=== PATIENT | female | born 1985 | race Caucasian/White ===

== ENCOUNTER 2017-05-10 16:49 | Emergency (ER) | payer MEDICAID, OTHER ==
--- NOTE | 2017-05-10 18:01 | ED Physician Documentation ---
PD HPI URI - Stated complaint Stated Complaint: FLU LIKE SYMTPOMS - Chief complaint Chief Complaint: Resp - History obtained from History obtained from: Patient - History of Present Illness Timing - onset: How many days ago (2) Timing duration: Days (2) Timing details: Gradual onset Pain level max: 4 Pain level now: 3 Associated symptoms: Fever (subjective), Chills, Nasal congestion, Rhinorrhea, Sore throat, Dry cough, Dyspnea. No: Ear pain, Hemoptysis, Chest pain Contributing factors: No: Travel, Immunocompromised, Unimmunized Improves by: Nothing Worsened by: Activity Recently seen: Not recently seen Review of Systems Cardiac: denies: Palpitations GI: denies: Vomiting, Diarrhea : denies: Now EGA Musculoskeletal: denies: Neck pain, Back pain Neurologic: denies: Focal weakness, Numbness, Headache PD PAST MEDICAL HISTORY - Past Medical History Past Medical History: No - Past Surgical History Past Surgical History: No - Present Medications Home Medications: Ambulatory Orders Medication Instructions Recorded Confirmed Albuterol Sulf [Ventolin Hfa 2 puffs INH Q4HR PRN #1 inhaler 05/10/17 Inhaler] Benzonatate [Tessalon Perle] 100 mg PO TID PRN #30 capsule 05/10/17 Cetirizine HCl/Pseudoephedrine 1 each PO BID PRN #30 tab.er.12h 05/10/17 [Zyrtec-D Tablet] Prednisone 40 mg PO DAILY #10 tablet 05/10/17 - Allergies Allergies/Adverse Reactions: Allergies Allergy/AdvReac Type Severity Reaction Status Date / Time No Known Drug Allergies Allergy Verified 05/10/17 16:54 - Social History Does the pt smoke?: Yes Smoking Status: Current every day smoker Does the pt drink ETOH?: Yes Does the pt have substance abuse?: No PD ED PE NORMAL - Vitals Vital signs reviewed: Yes - General General: Alert and oriented X 3, No acute distress - HEENT HEENT: Ears normal, Moist mucous membranes, Other (Moderate posterior oropharyngeal erythema without tonsillar exudates. Uvula midline. No trismus. Normal phonation) - Neck Neck: Supple, no meningeal sign, No adenopathy - Cardiac Cardiac: RRR - Respiratory Respiratory: No respiratory distress, Other (wheezing B) - Abdomen Abdomen: Soft, Non tender, Non distended - Derm Derm: Warm and dry, No rash - Neuro Neuro: Alert and oriented X 3 - Psych Psych: Normal mood, Normal affect Results - Vitals Vitals: Vital Signs - 24 hr 05/10/17 05/10/17 05/10/17 16:52 18:27 18:39 Temperature 36.8 C Heart Rate 94 80 Respiratory 18 16 16 Rate Blood Pressure 142/88 H 132/85 H O2 Saturation 98 100 Oxygen O2 Source Room air - Labs Labs: Laboratory Tests 05/10/17 18:15 Group A Strep Rapid Negative PD MEDICAL DECISION MAKING - ED course Complexity details: reviewed results, re-evaluated patient, considered differential, d/w patient, d/w family ED course: Patient is a 31-year-old female who presents with what appears to be a viral URI with wheezing. Feels better after dexamethasone and albuterol treatment here. Rapid strep negative. No evidence of pneumonia clinically. We will continue supportive care and follow-up with her doctor. Patient counseled regarding signs and symptoms for which I believe and urgent re-evaluation would be necessary. Patient with good understanding of and agreement to plan and is comfortable going home at this time This document was made in part using voice recognition software. While efforts are made to proofread this document, sound alike and grammatical errors may occur. Departure - Departure Disposition: 01 Home, Self Care Clinical Impression: Upper respiratory tract infection Qualifiers: URI type: unspecified viral URI Qualified Code(s): J06.9 - Acute upper respiratory infection, unspecified Condition: Good Instructions: ED URI Viral W Wheezing Follow-Up: [facility] [Provider Group] Prescriptions: Albuterol Sulf [Ventolin Hfa Inhaler] 2 puffs INH Q4HR PRN #1 inhaler PRN Reason: Wheezing Prednisone 40 mg PO DAILY #10 tablet Benzonatate [Tessalon Perle] 100 mg PO TID PRN #30 capsule PRN Reason: Cough Cetirizine HCl/Pseudoephedrine [Zyrtec-D Tablet] 1 each PO BID PRN #30 tab.er.12h PRN Reason: Nasal Congestion Comments: Return if you worsen. Drink plenty of fluids and rest. Forms: Activity restrictions Discharge Date/Time: 05/10/17 19:25
[2017-05-10] MEDS ORDERED: DEXAMETHASONE 10 MG/ML VIAL PO STA (18:16)
[2017-05-10] MEDS ORDERED: ALBUTEROL NEB 2.5 MG/3 ML INH STA (18:16)
[2017-05-10] MEDS ORDERED: DEXAMETHASONE 10 MG/ML VIAL ONE (18:19)
[2017-05-10] MEDS ORDERED: CHERRY SYRUP 10 ML UDC PO ONE (18:19)
[2017-05-10] MEDS ORDERED: ALBUTEROL NEB 2.5 MG/3 ML INH ONE (18:22)
[2017-05-10 18:40] VITALS: BP 132/85
[2017-05-10 19:08] LABS: RAPID STREP SCREEN REAGENT QC YELLOW (YELLOW)
== END 2017-05-10 19:25 | disposition home or self-care (01) ==
LOC: ED 16:49
DX: J06.9 Acute upper respiratory infection, unspecified (principal); F17.200 Nicotine dependence, unspecified, uncomplicated
CPT/HCPCS: 87070; 87430; 93005; 94640; 99283; A9270; J7613

== ENCOUNTER 2017-12-19 05:50 | Emergency (ER) | payer MEDICAID ==
[2017-12-19] MEDS ORDERED: SODIUM CHLORIDE 0.9% 1,000 ML IV ONE (06:17)
[2017-12-19] MEDS ORDERED: KETOROLAC 60 MG/2 ML VIAL IVP STA (06:17)
[2017-12-19] MEDS ORDERED: ONDANSETRON 4 MG/2 ML VIAL IVP STA (06:17)
[2017-12-19 06:21] LABS: BILIRUBIN,URINE NEGATIVE (NEGATIVE); GLUCOSE, URINE (UA) NEGATIVE (NEGATIVE); KETONES,URINE (UA) NEGATIVE (NEGATIVE); LEUKOCYTE ESTERASE, URINE NEGATIVE (NEGATIVE); NITRITE,URINE NEGATIVE (NEGATIVE); OCCULT BLOOD,URINE TRACE-INTA (NEGATIVE); PROTEIN,URINE NEGATIVE (NEGATIVE); UROBILINOGEN,URINE 0.2 (NORMAL) E.U./dL (NORMAL)
[2017-12-19 06:22] LABS: CLARITY,URINE CLEAR (CLEAR)
[2017-12-19 06:24] LABS: HCG UR QUAL NEGATIVE
--- NOTE | 2017-12-19 06:25 | ED Physician Documentation ---
PD HPI URI - Stated complaint Stated Complaint: FEVER,VOMITING,COUGH,BODY ACHES - Chief complaint Chief Complaint: General - History obtained from History obtained from: Patient - History of Present Illness Timing - onset: How many days ago (3) Timing details: Gradual onset, Still present Associated symptoms: Fever, Chills, Sweats, Nasal congestion, Rhinorrhea, Dry cough, NVD Contributing factors: Sick contact Similar symptoms before: No diagnosis Recently seen: Not recently seen - Additional information Additional information: Patient is a 32 year old female with no significant past medical history who is presenting to the emergency department for flu like symptoms. Patient states that it has been going on for the last four days. patient states that the body aches are starting to improve but she did have a migraine this morning. Review of Systems Constitutional: reports: Fever, Chills, Myalgias Eyes: denies: Discharge, Irritation Ears: denies: Ear pain Nose: reports: Rhinorrhea / runny nose, Congestion Throat: reports: Sore throat Respiratory: reports: Cough GI: reports: Abdominal Pain, Nausea, Vomiting. denies: Diarrhea : denies: Dysuria, Frequency Skin: denies: Rash, Lesions Musculoskeletal: reports: Neck pain, Back pain, Extremity pain Neurologic: reports: Generalized weakness, Headache. denies: Focal weakness, Numbness, Altered mental status, LOC Immunocompromised: denies: Immunocompromised PD PAST MEDICAL HISTORY - Past Surgical History Past Surgical History: No - Present Medications Home Medications: Ambulatory Orders Medication Instructions Recorded Confirmed Ondansetron Odt [Zofran] 4 mg TL Q6H PRN #20 tablet 12/19/17 - Allergies Allergies/Adverse Reactions: Allergies Allergy/AdvReac Type Severity Reaction Status Date / Time No Known Drug Allergies Allergy Verified 12/19/17 05:58 - Social History Does the pt smoke?: Yes Smoking Status: Current every day smoker Does the pt drink ETOH?: Yes Does the pt have substance abuse?: No PD ED PE NORMAL - Vitals Vital signs reviewed: Yes - General General: Alert and oriented X 3 - HEENT HEENT: Atraumatic - Neck Neck: Supple, no meningeal sign - Cardiac Cardiac: RRR, No murmur - Respiratory Respiratory: No respiratory distress - Abdomen Abdomen: Soft, Non tender, Non distended - Derm Derm: Normal color, No rash - Extremities Extremities: No deformity, Normal ROM s pain - Neuro Neuro: Alert and oriented X 3, No motor deficit, Normal speech - Psych Psych: Normal mood PD ED PE EXPANDED - General General: Alert - HEENT HEENT: Nasal congestion, Rhinorrhea, Moist mucous membranes Results - Vitals Vitals: Vital Signs - 24 hr 12/19/17 05:55 Temperature 37.9 C H Heart Rate 95 Respiratory 20 Rate Blood Pressure 117/90 H O2 Saturation 99 Oxygen O2 Source Room air - Labs Labs: Laboratory Tests 12/19/17 12/19/17 06:02 06:07 Urine Color YELLOW Urine Clarity CLEAR Urine pH 6.0 Ur Specific Bricelyn >=1.030 H Urine Protein NEGATIVE Urine Glucose (UA) NEGATIVE Urine Ketones NEGATIVE Urine Occult Blood TRACE-INTA Urine Nitrite NEGATIVE Urine Bilirubin NEGATIVE Urine Urobilinogen 0.2 (NORMAL) Ur Leukocyte Esterase NEGATIVE Ur Microscopic Review NOT INDICATED Urine Culture Comments NOT INDICATED Urine HCG, Qual NEGATIVE Influenza A (Rapid) Negative Influenza B (Rapid) POSITIVE H Influenza Types A,B Ag + H PD MEDICAL DECISION MAKING - ED course Complexity details: reviewed old records, reviewed results, re-evaluated patient , considered differential, d/w patient, d/w family ED course: Patient was seen and examined at bedside. Urine was collected and flu swab was performed. patient was treated with a fluid bolus, toradol zofran. patient responded well to the therapy. Patient required no further inpatient work up and was stable for discharge with outpatient follow up. Departure - Departure Disposition: 01 Home, Self Care Clinical Impression: Influenza B Condition: Stable Instructions: ED Flu Follow-Up: primary,care provider [Other] - As Needed Prescriptions: Ondansetron Odt [Zofran] 4 mg TL Q6H PRN #20 tablet PRN Reason: Nausea / Vomiting Comments: Your symptoms today are being caused by the influenza virus. There is no cure so treatment is based upon treating the symptoms. You can take zofran as needed for nausea and vomiting. You should stay well hydrated with at least 100 oz of fluids a day. You should alternate between motrin and tylenol for fever reduction and body aches. You can take over the counter cold and flu medications for the other symptoms. Forms: Activity restrictions
[2017-12-19 07:40] VITALS: BP 129/84
== END 2017-12-19 07:41 | disposition home or self-care (01) ==
LOC: ED 05:50
DX: J10.1 Influenza due to other identified influenza virus with other respiratory manifestations (principal); F17.200 Nicotine dependence, unspecified, uncomplicated
CPT/HCPCS: 36415; 81001; 81003; 81025; 87086; 87275; 87276; 96374; 99283

== ENCOUNTER 2020-01-05 10:49 | Outpatient (CLI) | payer MEDICAID ==
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
== END 2020-01-05 10:50 | disposition home or self-care (01) ==
LOC: DI 10:49
PROVIDERS: ATTEND Family Medicine
DX: S02.81XD Fracture of other specified skull and facial bones, right side, subsequent encounter for fracture with routine healing (principal)
CPT/HCPCS: 70140

== ENCOUNTER 2020-01-22 13:18 | Outpatient (CLI) | payer MEDICAID ==
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
== END 2020-01-22 13:19 | disposition home or self-care (01) ==
LOC: DI 13:18
PROVIDERS: ATTEND Family Medicine
DX: S02.31XA Fracture of orbital floor, right side, initial encounter for closed fracture (principal); S02.841A Fracture of lateral orbital wall, right side, initial encounter for closed fracture; S02.40CA Maxillary fracture, right side, initial encounter for closed fracture; S02.40EA Zygomatic fracture, right side, initial encounter for closed fracture; J01.40 Acute pansinusitis, unspecified; J32.4 Chronic pansinusitis
CPT/HCPCS: 70486

== ENCOUNTER 2021-11-16 08:42 | Emergency (ER) | payer MEDICAID ==
[2021-11-16 08:59] VITALS: BP 133/80
--- NOTE | 2021-11-16 09:21 | ED Physician Documentation ---
History of Present Illness - Stated complaint Stated Complaint: CONGESTION - Chief complaint Chief Complaint: General - History obtained from History obtained from: Patient - History of Present Illness Timing: Last night Pain level max: 6 Pain level now: 4 - Additonal information Additional information: Patient is a 36-year-old female who presents to the emergency department with nasal congestion, Sinus pressure, right ear pain. She is Covid vaccinated. Her stepson recently tested positive for Covid. She states that she has a history of sinus issues and has had problems with sinus infections in the past. Patient states that this feels similar. 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 HEENT: Chronic sinusitis Psych: None Musculoskeletal: None Derm: None - Past Surgical History Past Surgical History: No - Present Medications Home Medications: Ambulatory Orders Medication Instructions Recorded Confirmed Amox/Clav 875/125 [Augmentin] 1 tab PO Q12H #20 tablet 11/16/21 Cetirizine HCl/Pseudoephedrine 1 each PO BID PRN #30 ea 11/16/21 [Zyrtec-D Tablet] Fexofenadine HCl 180 mg PO DAILY 11/16/21 11/16/21 - Allergies Allergies/Adverse Reactions: Allergies Allergy/AdvReac Type Severity Reaction Status Date / Time No Known Drug Allergies Allergy Verified 11/16/21 08:54 - Social History Does the pt smoke?: Yes Smoking Status: Current every day smoker Does the pt drink ETOH?: No Does the pt have substance abuse?: No PD ED PE NORMAL - Vitals Vital signs reviewed: Yes - General General: Alert and oriented X 3, No acute distress - HEENT HEENT: Moist mucous membranes, Pharynx benign (Tender to palpation over the frontal sinuses. Reproduces her symptoms), Other (Right TM is erythematous, dull, bulging with loss of landmarks. Purulent fluid present.. Left TM is normal) - Neck Neck: Supple, no meningeal sign, No adenopathy - Cardiac Cardiac: RRR, Strong equal pulses - Respiratory Respiratory: No respiratory distress, Clear bilaterally - Abdomen Abdomen: Soft, Non tender, Non distended - Derm Derm: Warm and dry - Neuro Neuro: Alert and oriented X 3 - Psych Psych: Normal mood, Normal affect Results - Vitals Vitals: Vital Signs - 24 hr 11/16/21 08:56 Temperature 36.5 C Heart Rate 73 Respiratory 18 Rate Blood Pressure 133/80 H O2 Saturation 97 Oxygen O2 Source Room air PD MEDICAL DECISION MAKING - ED course Complexity details: considered differential, d/w patient ED course: 36-year-old female with what appears to be a viral upper respiratory infection. We we will place her on decongestants for home. Patient also appears to have a secondary right acute otitis media with purulence. We will place on antibiotics for this. We will have her follow-up with her doctor for further care. Patient counseled regarding signs and symptoms for which I believe and urgent re- evaluation would be necessary. Patient with good understanding of and agreement to plan and is comfortable going home at this time This document was made in part using voice recognition software. While efforts are made to proofread this document, sound alike and grammatical errors may occur. Departure - Departure Disposition: 01 Home, Self Care Clinical Impression: Viral URI Otitis media Qualifiers: Otitis media type: suppurative Chronicity: acute Laterality: right Recurrence: non-recurrent Spontaneous tympanic membrane rupture: without spontaneous rupture Qualified Code(s): H66.001 - Acute suppurative otitis media without spontaneous rupture of ear drum, right ear Condition: Good Instructions: ED Otitis Media Acute Adult, ED Viral Syndrome Follow-Up: RADHA WRIGHT MD [Primary Care Provider] - Within 1 week Prescriptions: Amox/Clav 875/125 [Augmentin] 1 tab PO Q12H #20 tablet Cetirizine HCl/Pseudoephedrine [Zyrtec-D Tablet] 1 each PO BID PRN #30 ea PRN Reason: nasal congestion Comments: Your prescriptions were sent to [facility] in [place]. Please follow-up with your doctor as needed for further care. Return if you worsen.
== END 2021-11-16 10:05 | disposition home or self-care (01) ==
LOC: ED 08:42
DX: U07.1 COVID-19 (principal); H66.001 Acute suppurative otitis media without spontaneous rupture of ear drum, right ear; F17.200 Nicotine dependence, unspecified, uncomplicated
CPT/HCPCS: 99283

== ENCOUNTER 2022-04-12 23:32 | Emergency (ER) | payer MEDICAID ==
[2022-04-13] MEDS ORDERED: oxyCODONE/ACET 5/325 Prepack 4 PO STA (02:00)
--- NOTE | 2022-04-13 02:00 | XRAY Report ---
PROCEDURE: Toe(s) RT INDICATIONS: pain/trauma TECHNIQUE: 3 views of the right fifth toe acquired. COMPARISON: None. FINDINGS: Bones: There is a fracture in the midshaft of the fifth proximal phalanx with associated mild lateral displacement and angulation. No dislocation. No suspicious bony lesions. Soft tissues: No suspicious soft tissue densities. IMPRESSION: 1. Mildly displaced and angulated fracture of the fifth proximal phalanx. Reviewed by: Buddy Moreira MD on 04/13/2022 1:58 AM PDT Approved by: Buddy Moreira MD on 04/13/2022 1:58 AM PDT Station ID: [id number]
[2022-04-13 02:12] VITALS: BP 135/84
--- NOTE | 2022-04-13 02:16 | ED Physician Documentation ---
PD HPI LOWER EXT INJURY - Stated complaint Stated Complaint: RT TOE INJ - Chief complaint Chief Complaint: Trauma Ext - History obtained from History obtained from: Patient - Additional information Additional information: Patient is a 36-year-old female with no significant past medical history presenting for evaluation of right fifth toe pain after hitting it against a couch this evening. The pain is sharp and worse with ambulating. She has not taken anything for the pain. It does not radiate elsewhere.Patient denies blood thinner use. She denies injuries elsewhere. 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 HEENT: Chronic sinusitis Psych: None Musculoskeletal: None Derm: None - Past Surgical History Past Surgical History: No - Present Medications Home Medications: Ambulatory Orders Medication Instructions Recorded Confirmed Amox/Clav 875/125 [Augmentin] 1 tab PO Q12H #20 tablet 11/16/21 Cetirizine HCl/Pseudoephedrine 1 each PO BID PRN #30 ea 11/16/21 [Zyrtec-D Tablet] Fexofenadine HCl 180 mg PO DAILY 11/16/21 11/16/21 Oxycodone HCl/Acetaminophen 1 each PO Q6H PRN #10 tablet 04/13/22 [Percocet 5-325 mg Tablet] - Allergies Allergies/Adverse Reactions: Allergies Allergy/AdvReac Type Severity Reaction Status Date / Time No Known Drug Allergies Allergy Verified 04/12/22 23:35 - Social History Does the pt smoke?: Yes Smoking Status: Current every day smoker Does the pt drink ETOH?: No Does the pt have substance abuse?: No PD ED PE NORMAL - General General: Alert and oriented X 3, No acute distress, Well developed/nourished - HEENT HEENT: Atraumatic - Respiratory Respiratory: No respiratory distress - Derm Derm: Warm and dry - Extremities Extremities: Other (Deformity to right fifth toe, tissue is well perfused, able to wiggle All toes and sensation is intact, No open wounds). No: No deformity - Neuro Neuro: No motor deficit, No sensory deficit PD ED PE EXPANDED - Extremities Feet visual: 1 - deformity, tenderness Results - Vitals Vitals: Vital Signs - 24 hr 04/12/22 04/13/22 04/13/22 23:35 01:28 02:11 Temperature 36.5 C Heart Rate 100 88 Respiratory 16 16 16 Rate Blood Pressure 146/90 H 135/84 H O2 Saturation 98 98 04/13/22 02:12 Temperature 37.4 C Heart Rate Respiratory Rate Blood Pressure O2 Saturation Oxygen O2 Source Room air Procedures - Reduction Body part reduced: Toe Fracture or dislocation: Fracture dislocation Anesthesia: Digital block Shoulder reduction technique: Traction - counter tract Reduction aftercare: NV intact, Alignment improved, Patient tolerated well PD MEDICAL DECISION MAKING - ED course Complexity details: reviewed results, re-evaluated patient, d/w patient ED course: Patient with injury to right fifth toe. Fracture seen on x-ray. It is angulated. There are some improvement with alignment on reduction.However, patient is aware she needs to follow-up with orthopedic surgeon given the angul ation.Fracture was ariadna taped. Patient declined crutches and was able to ambulate. She is aware of return precautions. No injuries noted elsewhere. Departure - Departure Disposition: 01 Home, Self Care Clinical Impression: Toe fracture, right Qualifiers: Encounter type: initial encounter Toe: lesser toe Fracture type: closed Phalanx: middle Fracture alignment: displaced Qualified Code(s): S92.521A - Displaced fracture of middle phalanx of right lesser toe(s), initial encounter for closed fracture Condition: Stable Instructions: ED Fx Toe Closed Follow-Up: Robles Stanton MD [Provider Admit Priv/Credential] - Prescriptions: Oxycodone HCl/Acetaminophen [Percocet 5-325 mg Tablet] 1 each PO Q6H PRN #10 tablet PRN Reason: pain Comments: Kaley - You have a fracture of your right little toe. We have applied a ariadna tape to help stabilize the fracture. However the fracture was displaced and I do recommend having follow-up with an orthopedic surgeon As you may need an additional procedure to help the bone heal.I have included the name of a local orthopedic surgeon who I would recommend you call in the morning to Make an appointment. I have also prescribed pain medication to help With any discomfort. You can also use ice and elevate the foot as this may help with the pain. I have sent your prescription to the [facility] in [place]. I am prescribing a short course of narcotic pain medication for you. These are potentially dangerous and addictive medications that should be used carefully. These medications may constipate you. Take an aeak-wpr-sqowmlc stool softener (docusate) twice daily with plenty of water while taking these medications. If you go 24 hours without a bowel movement, take [id number] miralax, per package instructions. Do not drink or drive while taking these medications. If you received narcotic or sedating medications while in the emergency department, do not drive for 24 hours. Store this medication in a safe, secure place and out of reach of children. It is a violation of federal law to give or sell this medication to another person or to use in a manner other than prescribed. The ED will not refill narcotic prescriptions, including prescriptions lost or stolen. To dispose of unwanted medications: 1. [facility] at [address] in [place] has a medication drop box. They accept prescription medications (in pill form) Monday through Monday 9:00 a.m. to 5:00 p.m. 2. [facility] accepts prescription medications (in pill form only) for disposal year round. Call for more i nformation. 3. Contact the [facility] for the next [facility] sponsored prescription drug collection event. , [phone], or [phone]; Note that many narcotic pain relievers also contain Tylenol/acetaminophen. Please ensure that your total dose of acetaminophen from all sources does not exceed 3 g (3000 mg) per day. Discharge Date/Time: 04/13/22 02:39
--- NOTE | 2022-04-13 08:07 | XRAY Report ---
PROCEDURE: Toe(s) RT INDICATIONS: post splint TECHNIQUE: 3 views of the right fifth toe(s) acquired. COMPARISON: 04/12/2022 FINDINGS: Bones: Mildly displaced and angulated right fifth proximal phalange fracture. Soft tissues: No suspicious soft tissue densities. IMPRESSION: Mildly displaced right fifth proximal phalange fracture stable compared to the prior exam. Reviewed by: Dulce Maria Meyers MD, PhD on 04/13/2022 8:06 AM PDT Approved by: Dulce Maria Meyers MD, PhD on 04/13/2022 8:06 AM PDT Station ID: [id number]
== END 2022-04-13 02:39 | disposition home or self-care (01) ==
LOC: ED 23:32
DX: S92.511A Displaced fracture of proximal phalanx of right lesser toe(s), initial encounter for closed fracture (principal); W22.03XA Walked into furniture, initial encounter; F17.200 Nicotine dependence, unspecified, uncomplicated
CPT/HCPCS: 99283

== ENCOUNTER 2022-04-21 08:00 | Outpatient (CLI) | payer MEDICAID ==
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
== END 2022-04-21 23:59 | disposition home or self-care (01) ==
LOC: DI.WOS 08:00
PROVIDERS: ATTEND Physician Assistant Surgical
DX: S92.511D Displaced fracture of proximal phalanx of right lesser toe(s), subsequent encounter for fracture with routine healing (principal)

== ENCOUNTER 2022-05-10 08:00 | Outpatient (CLI) | payer MEDICAID | END 2022-05-10 23:59 | disposition home or self-care (01) | LOC: LAB.N 08:00 | PROVIDERS: ATTEND Physician Assistant Medical | DX: N30.00 Acute cystitis without hematuria (principal) | CPT/HCPCS: 87077; 87086 ==

== ENCOUNTER 2022-05-19 08:00 | Outpatient (CLI) | payer MEDICAID ==
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
== END 2022-05-19 23:59 | disposition home or self-care (01) ==
LOC: DI.WOS 08:00
PROVIDERS: ATTEND Physician Assistant Surgical
DX: S92.511D Displaced fracture of proximal phalanx of right lesser toe(s), subsequent encounter for fracture with routine healing (principal)

== ENCOUNTER 2024-02-02 01:59 | Emergency (ER) | payer OTHER, MEDICAID ==
[2024-02-02 02:24] VITALS: BP 136/90; O2SAT 100
[2024-02-02] MEDS: TETANUS/DIPHTHERIA/PERTUSSIS 0.5 ML SYRINGE IM ONE (02:27)
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
[2024-02-02] MEDS: AMOX/CLAV 875 MG/125 MG TABLET PO STA (04:25)
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
== END 2024-02-02 04:43 | disposition home or self-care (01) ==
LOC: ED 01:59
DX: S09.90XA Unspecified injury of head, initial encounter (principal); S02.2XXA Fracture of nasal bones, initial encounter for closed fracture; S61.411A Laceration without foreign body of right hand, initial encounter; W19.XXXA Unspecified fall, initial encounter; Y33.XXXA Other specified events, undetermined intent, initial encounter; R45.1 Restlessness and agitation; R04.0 Epistaxis; F17.200 Nicotine dependence, unspecified, uncomplicated; Z23 Encounter for immunization
CPT/HCPCS: 70450; 70486; 73030; 73060; 73120; 90471; 90715; 99284; A9270

== ENCOUNTER 2024-02-02 12:47 | Emergency (ER) | payer MEDICAID ==
[2024-02-02 13:03] VITALS: BP 133/81; O2SAT 98
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
== END 2024-02-02 13:34 | disposition home or self-care (01) ==
LOC: ED 12:47
DX: S02.2XXA Fracture of nasal bones, initial encounter for closed fracture (principal); X58.XXXA Exposure to other specified factors, initial encounter
CPT/HCPCS: 99282; 99283

== ENCOUNTER 2024-07-13 08:00 | Outpatient (CLI) | payer BC, MEDICAID | END 2024-07-13 23:59 | disposition home or self-care (01) | LOC: LAB.N 08:00 | PROVIDERS: ATTEND Nurse Practitioner | DX: R30.0 Dysuria (principal) | CPT/HCPCS: 87077; 87086; 87181 ==

== ENCOUNTER 2024-07-26 08:00 | Outpatient (CLI) | payer BC | END 2024-07-26 23:59 | disposition home or self-care (01) | LOC: LAB.N 08:00 | PROVIDERS: ATTEND Nurse Practitioner | DX: R30.0 Dysuria (principal) | CPT/HCPCS: 87086 ==

== ENCOUNTER 2024-08-02 11:20 | Outpatient (CLI) | payer BC ==
[2024-08-02 17:57] LABS: BASOPHILS # (AUTO) 0.1 10^3/uL (0.0-0.1); BASOPHILS % (AUTO) 0.9 %; EOSINOPHILS # (AUTO) 0.3 10^3/uL (0.0-0.7); EOSINOPHILS % (AUTO) 5.2 %; HCT - HEMATOCRIT 39.9 % (37.0-47.0); HGB - HEMOGLOBIN 12.8 g/dL (12.0-16.0); LYMPHOCYTES # (AUTO) 2.2 10^3/uL (1.5-3.5); LYMPHOCYTES % (AUTO) 34.7 %; MEAN CORPUSCULAR HEMOGLOBIN 29.6 pg (27.0-31.0); MEAN CORPUSCULAR HGB CONC 32.1 g/dL (32.0-36.0); MEAN CORPUSCULAR VOLUME 92.4 fL (81.0-99.0); MEAN PLATELET VOLUME 10.2 fL (7.9-10.8); MONOCYTES # (AUTO) 0.6 10^3/uL (0.0-1.0); MONOCYTES % (AUTO) 8.9 %; NEUTROPHILS # (AUTO) 3.2 10^3/uL (1.5-6.6); PLT - PLATELET COUNT 342 10^3/uL (130-450); RED BLOOD COUNT 4.32 10^6/uL (4.20-5.40); RED CELL DISTRIBUTION WIDTH 13.3 % (12.0-15.0); WHITE BLOOD COUNT 6.4 x10^3/uL (4.8-10.8)
[2024-08-02 18:28] LABS: ALBUMIN 4.2 g/dL (3.2-5.5); ALBUMIN/GLOBULIN RATIO 1.2 (1.0-2.2); ALKALINE PHOSPHATASE 49 IU/L (42-121); ALT ALANINE AMINOTRANSFERASE 17 IU/L (10-60); AST ASPARTATE AMINOTRANSFERASE 17 IU/L (10-42); BILIRUBIN,TOTAL 0.4 mg/dL (0.2-1.0); BUN - BLOOD UREA NITROGEN 14 mg/dL (6-20); CALCIUM 9.7 mg/dL (8.5-10.3); CARBON DIOXIDE - CO2 28 mmol/L (21-32); CHLORIDE 104 mmol/L (101-111); CHOL/HDL RATIO 2.9 (<4.4); CHOLESTEROL 173 mg/dL; CREATININE 0.7 mg/dL (0.6-1.3); GFR - MDRD 93 (>89); GLUCOSE 83 mg/dL (74-104); HDL CHOLESTEROL 60 mg/dL; LDL CHOLESTEROL,CALCULATED 90 mg/dL; LDL/HDL RATIO 1.5 (<4.4); POTASSIUM 4.1 mmol/L (3.5-4.5); SODIUM 138 mmol/L (135-145); TOTAL PROTEIN 7.6 g/dL (6.4-8.9); TRIGLYCERIDES 113 mg/dL; VLDL CHOLESTEROL 23 mg/dL
[2024-08-02 18:31] LABS: THYROID STIMULATING HORMONE 3.29 uIU/mL (0.34-5.60)
[2024-08-02 21:29] LABS: ESTIMATED AVERAGE GLUCOSE 97 mg/dL (70-100)
== END 2024-08-02 11:21 | disposition home or self-care (01) ==
LOC: LAB.N 11:20
DX: R00.2 Palpitations (principal)
CPT/HCPCS: 36415; 80053; 80061; 83036; 83721; 84443; 85025